=== PATIENT | male | born 1940 | race Two or more races ===

== ENCOUNTER → 2025-03-20 | Outpatient (CLI) | payer MEDICARE, SELFPAY ==
[2025-03-20 12:33] LABS: Basophils # (Auto) 0.0 Thou/mm3 (0.0-0.2); Basophils % (Auto) 0 % (0-2.5); Eosinophils # (Auto) 0.2 Thou/mm3 (0.0-0.5); Eosinophils % (Auto) 3 % (0-10); Hematocrit 45.2 % (41.0-53.0); Hemoglobin 15.8 g/dL (13.5-16.0); Immature Granulocytes Auto 0.03 Thou/mm3 (0.00-0.00); Lymphocytes # (Auto) 0.8 Thou/mm3 (1.0-4.8); Lymphocytes % (Auto) 11 % (10-50); Mean Corpuscular HGB Conc 35.0 g/dl (31.0-37.0); Mean Corpuscular Hemoglobin 31.6 pg (25.0-35.0); Mean Corpuscular Volume 90 fL (80-100); Monocytes # (Auto) 0.6 Thou/mm3 (0.0-0.8); Monocytes % (Auto) 8 % (0-12); Neutrophils # (Auto) 6.0 Thou/mm3 (1.8-7.7); Neutrophils % (Auto) 77 % (37-80); Nucleated Red Blood Cell # 0.00 Thou/mm3 (0.00-0.00); Nucleated Red Blood Cell % 0 /100 WBC (0); Platelet Count 182 Thou/mm3 (140-440); RDW Standard Deviation 42.3 fL (35.1-43.9); Red Blood Count 5.00 Miln/mm3 (4.50-5.90); White Blood Count 7.7 Thou/mm3 (3.8-10.6)
[2025-03-20 14:11] LABS: Prostate Specific Antigen 1.44 ng/mL (0-4.00)
[2025-03-20 14:39] LABS: Alanine Aminotransferase 20 U/L (10-49); Albumin, Serum 5.0 gm/dL (3.4-4.8); Alkaline Phosphatase 88 U/L (46-116); Anion Gap 13 (7-16); Aspartate Amino Transferase 17 U/L (0-34); BUN/Creatinine Ratio 10 Ratio (12-20); Bilirubin,Direct 0.2 mg/dL (0.0-0.3); Bilirubin,Total 0.5 mg/dL (0.3-1.2); Blood Urea Nitrogen 14 mg/dL (9-23); Calcium 10.2 mg/dL (8.3-10.6); Carbon Dioxide 23.2 mMol/L (20.0-31.0); Cardiac Risk Estimate 3.0 RATIO (4.0-6.7); Chloride 104 mMol/L (98-107); Cholesterol 118 mg/dL (132-200); Creatinine (Component) 1.4 mg/dL (0.6-1.3); Glucose 348 mg/dL (74-106); HDL Cholesterol 40 mg/dL (40-60); LDL Cholesterol,Calculated 55 mg/dL (0-130); Osmolality,Calculated 293 (275-295); Potassium 4.7 mMol/L (3.4-5.1); Sodium 140 mMol/L (136-145); Total Protein 7.2 gm/dL (5.7-8.2); Triglycerides 116 mg/dL (30-150); eGFR 50 See Note
== END | disposition home or self-care (01) ==
PROVIDERS: PCP Family Medicine; Referring Provider Family Medicine; Visit Provider Family Medicine
DX: I10 Essential (primary) hypertension (principal); K21.9 Gastro-esophageal reflux disease without esophagitis; E78.5 Hyperlipidemia, unspecified; N40.0 Benign prostatic hyperplasia without lower urinary tract symptoms
CPT/HCPCS: 36415; 80048; 80061; 80076; 84153; 85025

== ENCOUNTER 2025-03-21 19:44 | Emergency (ER) | payer MEDICARE, SELFPAY ==
--- NOTE | 2025-03-21 19:51 | EKG_ITS ---
[facility] Test Date: 2025-03-21 Pat Name: BERNICE IGNACIO Department: Room: - Gender: Male Purchasing Director: : 1940 Requested By: ED Temporary Provider Order Number: [id number] Reading MD: ED Temporary Provider Measurements Intervals [place] Rate: 75 P: 65 ME: 187 QRS: -6 QRSD: 122 T: 28 QT: 352 QTc: 394 Interpretive Statements SINUS RHYTHM INFERIOR MYOCARDIAL INFARCTION , PROBABLY OLD [40+ ms Q WAVE AND/OR ST/T ABNORMALITY IN II/aVF] No previous ECG available for comparison /[id number]/S0/[id number]
[2025-03-21 20:19] VITALS: BP 129/75; PULSE 79; RESP 20; TEMP 37.1; O2SAT 94
--- NOTE | 2025-03-21 20:24 | PD.EDRME ---
Rapid Medical Screening Exam RME Arrival date/time: 03/21/25 19:44 This is a case of 84-year-old male with history of diabetes came in in the emergency room with his son due to high blood sugar at home and with general weakness and lethargy thus decided to bring patient here in the emergency room Chief Complaint: General Adult/Misc Complain Time Seen by Provider: 03/21/25 20:22 Vital signs: Vital Signs Temperature 98.8 F 03/21/25 20:19 Pulse Rate 79 03/21/25 20:19 Respiratory Rate 20 03/21/25 20:19 Blood Pressure 129/75 03/21/25 20:19 Pulse Oximetry (%) 94 L 03/21/25 20:19 Oxygen Delivery Method Room Air 03/21/25 20:19 Exam: Patient is awake alert oriented not in distress nontoxic looking lungs sound is clear breath sounds abdomen soft heart normal rate regular rhythm no murmur Clinical Impression: General weakness hyperglycemia
[2025-03-21] MEDS: SODIUM CHLORIDE 0.9% 1000 ML 1,000 ML 999 ML IV (20:50)
--- NOTE | 2025-03-21 20:58 | PC.NURSE ---
MD GUZMAN MADE AWARE OF PT BS OF 434. OK WITH RUNNING FLUIDS FOR 3O MIN AND WAITING TO GIVE PRESCRIBED INSULIN. WILL RECHECK BS IN 30 MIN. NO NEW ORDERS AT THIS TIME
--- NOTE | 2025-03-21 21:03 | PD.EDWEAK ---
ED Weakness RME/HPI General Chief complaint: General Adult/Misc Complain Stated complaint: NOT FEELING WELL, HIGH BS Time Seen by Provider: 03/21/25 20:22 Arrival date/time: 03/21/25 19:44 RME / HPI RME / HPI Narrative: 03/21/25 19:44 This is a case of 84-year-old male with history of diabetes came in in the emergency room with his son due to high blood sugar at home and with general weakness and lethargy thus decided to bring patient here in the emergency room Dr. Artis?s Main ED Evaluation: 84 y/o male with Hx of Type II DM and HTN presents to ED c/o generalized weakness, lethargy, and elevated blood sugar levels x 1 day. Son reports increased thirst, urinary frequency, urgency, and incontinence. Denies fever, chills, and cold sweats. Son also states that patient has managed to increase his soda intake. Patient has been living with his daughter for the last 5 months, but son has now established patient with a PCP on Sunday. Exam: Patient is awake alert oriented not in distress nontoxic looking lungs sound is clear breath sounds abdomen soft heart normal rate regular rhythm no murmur Impression: General weakness hyperglycemia Related Data Previous Rx's ?Medication ?Instructions ?Recorded acyclovir 800 mg tablet 800 mg PO 5 TIMES DAILY #35 tabs 07/24/17 ibuprofen 600 mg tablet 600 mg PO Q8H PRN fever or pain 07/24/17 #20 tabs lidocaine HCl 2 % topical cream 2 % .Route Q8HR PRN pain #50 mL 07/24/17 tramadol 50 mg tablet 50 mg PO Q6H PRN pain #14 tabs 07/24/17 ibuprofen 600 mg tablet 600 mg PO Q6HR #30 tabs 08/01/17 Allergies Allergy/AdvReac Type Severity Reaction Status Date / Time No Known Allergies Allergy Verified 03/21/25 19:46 Review of Systems Review of Systems Systems Reviewed: All systems reviewed, normal except as documented Past Medical History Past Medical History CARDIAC: Positive Hypercholesterolemia and Hypertension ENDOCRINE: Positive Diabetes Mellitus Type 2 ED Exam Narrative Physical exam: GENERAL APPEARANCE: alert and oriented x 4, well-developed, well-nourished, no acute distress VITALS: All vitals were reviewed and the pulse ox is 94% on room air, which is low according to my interpretation. HEENT: Normocephalic, atraumatic; pupils equal, round, reactive to light; EOMI; mucous membranes pink, moist; oropharynx clear NECK: Supple LUNGS: CTABL; no wheezes, no rales, no rhonchi HEART: Regular rate, regular rhythm; normal S1, S2; no murmurs ABDOMEN: non distended; normal BS; soft, no tenderness, no guarding, no rebound; no masses, no organomegaly, no hernia BACK: no CVA tenderness EXTREMITIES: atraumatic; no edema NEUROLOGIC: awake; alert and oriented x4; cranial nerves II-XII grossly intact; no focal sensory or motor deficits PSYCHIATRIC: appropriate mood and affect SKIN: warm, dry, normal color; no rashes Course Quality Measures none Orders Category Date Time Status EKG (ED ONLY) *Do not use* NOW Care 03/21/25 19:51 Completed Fingerstick [Bedside Blood Glucose] NOW Care 03/21/25 20:05 Active EKG (ED Only) Stat Exams 03/21/25 19:51 Draft A1C [Glycohemoglobin w (eAG)] Stat Lab 03/21/25 20:53 Completed Beta Hydroxybutyrate Stat Lab 03/21/25 20:53 Completed CBC Stat Lab 03/21/25 20:53 Completed Comprehensive Metabolic Panel Stat Lab 03/21/25 20:53 Completed Troponin I Stat Lab 03/21/25 20:53 Completed Urinalysis Stat Lab 03/21/25 21:00 Completed Venous Blood Gas Stat Lab 03/21/25 20:53 Completed Insulin Regular Med 03/21/25 20:23 Discontinued 10 unit IV X1 ONE Insulin Regular Med 03/21/25 21:36 Discontinued 5 unit IV X1 ONE Sodium Chloride 0.9% 1000 ml [Ns] 1,000 ml Med 03/21/25 20:23 Discontinued IV 999 mls/hr Vital Signs Vital signs: Vital Signs Temperature 98.8 F 03/21/25 20:19 Pulse Rate 79 03/21/25 20:19 Respiratory Rate 20 03/21/25 20:19 Blood Pressure 129/75 03/21/25 20:19 Pulse Oximetry (%) 94 L 03/21/25 20:19 Oxygen Delivery Method Room Air 03/21/25 20:19 Weakness MDM Narrative MDM Narrative:: Patient is a 84-year-old male who has a history of prediabetes who was brought in by son with complaints of excessive thirst and urination as well as generally appearing somewhat fatigued. Here in the emergency department the patient's vital signs were stable and normal throughout. His exam is very much reassuring. Patient's workup revealed a normal anion gap and minimally elevated serum ketones. No evidence of DKA or hyperosmolar state. Symptoms consistent with simple hyperglycemia and patient was treated accordingly in ED. patient to follow-up in the [facility] clinic for definitive ongoing treatment for his diabetes. No signs of DKA or hyperosmolar state Scribe Attestation: I, Kimberley Valera, am scribing for and in the presence of Dr. Artis. Provider Notation: Although this document has been carefully reviewed, there may still be some phonetic and other typographical errors. These errors are purely grammatical due to imperfections in the software program and should not be construed in any way to compromise the substance of the patient's medical care during this visit. Patient data External records reviewed:: [facility] previous records (No recent ED records available for review) Clinical information provided by:: family (Son) Social determinants that could affect healthcare access:: none Patient has the following chronic illnesses:: Hypercholesterolemia, Hypertension, Diabetes Mellitus Type 2 How is presenting disease/condition affected by chronic disease/condition?: exacerbated by Evaluation data The following diagnostics were reviewed and interpreted by me:: lab results and EKG tracing(s) (EKG at 20:19 shows normal sinus rhythm at 75, normal axis, no ectopy, no signs of acute ischemia, Q waves in leads III and aVF, per my interpretation.) Lab and/or radiology exams considered but not ordered:: None Interpretation Summary: See MDM above Medications / Prescriptions Medications or Prescriptions considered but not ordered:: None Medication administrations:: Medication Administration History Discontinued Medications Sodium Chloride (Ns) 1,000 mls @ 999 mls/hr IV .Q1H1M ONE Stop: 03/21/25 21:23 Last Infusion: 03/21/25 21:35 Dose: Infused Documented By: Admin: 03/21/25 20:50 Dose: 999 mls/hr Documented By: HANSA Insulin Human Regular (Insulin Hum Regular 1 Unit/0.01 Ml (Per Unit)) 10 unit IV X1 ONE Stop: 03/21/25 20:24 Last Admin: 03/21/25 21:37 Dose: Not Given Documented By: HANSA Non-Admin Reason: Change of Condition Insulin Human Regular (Insulin Hum Regular 1 Unit/0.01 Ml (Per Unit)) 5 unit IV X1 ONE Stop: 03/21/25 21:37 Last Admin: 03/21/25 21:39 Dose: 5 unit Documented By: HANSA Co-signed By: ELIGIO See above if any Consultations Consultation(s) initiated? (list below): No Diagnosis Weakness Differential Diagnosis: acute myocardial infarction, rhabdomyolysis, dehydration and other (Hyperglycemia, DKA) Most likely diagnosis given after review of the tests above:: See clinical impression below Admission Indicated Admission indicated?: not indicated Explain why admission is indicated or not indicated:: Patient has no emergent abnormalities in their studies and can be managed on an outpatient basis Admission Request Was there a request for admission?: No Disposition Plan Disposition Plan: Discharge Discharge Attestation Discharge Attestation: The patient and all family members were given an opportunity to ask questions and understood the discharge instructions. Discharge instructions specifically effects, indications for sooner follow up or return to the emergency department, and the expected course of current diagnosis. Patient condition: Stable Discharge Plan Plan Patient Disposition: HOME (Self Care) Discharge Disposition comment: Stable for discharge home Patient condition on transfer: Stable Prescriptions/Referrals Prescriptions/Med Rec: No Action ibuprofen 600 mg tablet 600 mg PO Q6HR Qty: 30 0RF acyclovir 800 mg tablet 800 mg PO 5 TIMES DAILY Qty: 35 0RF tramadol 50 mg tablet 50 mg PO Q6H PRN (Reason: pain) Qty: 14 0RF ibuprofen 600 mg tablet 600 mg PO Q8H PRN (Reason: fever or pain) Qty: 20 0RF lidocaine HCl 2 % cream 2 % .Route Q8HR PRN (Reason: pain) Qty: 50 0RF Rx Instructions: PRN Referrals: Family [facility] [Provider Group] - In 1 week Problem List Clinical Impression: Acute hyperglycemia Patient/Caregiver Discharge Instructions Discharge Activity: activity as tolerated Education Materials: ED Hyperglycemia New Susp Diabetes Additional Instructions: I believe Mark has diabetes. You should follow-up with his new primary care doctor or in the family health care clinic within the next several days. They will most likely order diabetes medication for Mark. Ana Flores's blood work showed that he is not having a complication of diabetes. But he is most likely diabetic. If he has any worsening or any further medical problems please return Mark to the emergency department right away and we will help him. Print Language: Lao Stand Alone Forms: Mary Award Info., Patient Portal Info Letter
[2025-03-21 21:09] LABS: Base Excess, Venous -2 (-3-3); Basophils # (Auto) 0.0 Thou/mm3 (0.0-0.2); Basophils % (Auto) 1 % (0-2.5); Eosinophils # (Auto) 0.3 Thou/mm3 (0.0-0.5); Eosinophils % (Auto) 4 % (0-10); Hematocrit 47.0 % (41.0-53.0); Hemoglobin 15.8 g/dL (13.5-16.0); Immature Granulocytes Auto 0.04 Thou/mm3 (0.00-0.00); Lymphocytes # (Auto) 1.2 Thou/mm3 (1.0-4.8); Lymphocytes % (Auto) 14 % (10-50); Mean Corpuscular HGB Conc 33.6 g/dl (31.0-37.0); Mean Corpuscular Hemoglobin 30.6 pg (25.0-35.0); Mean Corpuscular Volume 91 fL (80-100); Monocytes # (Auto) 0.7 Thou/mm3 (0.0-0.8); Monocytes % (Auto) 8 % (0-12); Neutrophils # (Auto) 6.1 Thou/mm3 (1.8-7.7); Neutrophils % (Auto) 73 % (37-80); Nucleated Red Blood Cell # 0.00 Thou/mm3 (0.00-0.00); Nucleated Red Blood Cell % 0 /100 WBC (0); O2 Saturation, Venous 55 % (96-97); PCO2, Venous 47 mmHg (36-56); PO2, Venous 31 mmHg (15-58); Platelet Count 181 Thou/mm3 (140-440); RDW Standard Deviation 43.0 fL (35.1-43.9); Red Blood Count 5.16 Miln/mm3 (4.50-5.90); White Blood Count 8.4 Thou/mm3 (3.8-10.6); pH, Venous 7.33 (7.33-7.66)
[2025-03-21 21:13] LABS: Collection Type, Urine Clean Catch; Squamous Epithelial Cell,Urine 0 /hpf (0-5)
[2025-03-21 21:19] LABS: Beta Hydroxybutyrate 0.8 mmol/L (<0.6)
[2025-03-21 21:21] VITALS: BMI 27.3
[2025-03-21 21:27] LABS: Bilirubin,Urine Negative (Negative); Blood,Urine Negative (Negative); Clarity,Urine Clear (Clear/Hazy); Color,Urine Colorless (Lt Yel-Yel); Glucose, Urine 4+ (Negative); Ketones,Urine 1+ (Negative); Leukocyte Esterase,Urine Negative (Negative); Nitrite,Urine Negative (Negative); PH,Urine 6.0 (5.0-7.0); Protein,Urine Negative (Neg - Trace); RBC,Urine 2 /hpf (0-3); Specific Gravity,Urine 1.032 (1.001-1.035); Urobilinogen,Urine Negative mg/dL (0.0-1.0); WBC,Urine < 1 /hpf (0-5)
[2025-03-21 21:31] LABS: Glucose Estimated Average 280 mg/dL (80-131); Hemoglobin A1C 11.4 % Hgb (4.8-6.0)
[2025-03-21 21:34] VITALS: BP 136/85; PULSE 69; RESP 20; TEMP 36.4; O2SAT 98
[2025-03-21] MEDS: INSULIN HUM REGULAR 1 UNIT/0.01 ML (PER UNIT) 5 UNIT IV (21:39)
[2025-03-21 21:43] LABS: Alanine Aminotransferase 20 U/L (10-49); Albumin, Serum 4.8 gm/dL (3.4-4.8); Albumin/Globulin Ratio 1.8 (1.2-2.2); Alkaline Phosphatase 95 U/L (46-116); Anion Gap 10 (7-16); Aspartate Amino Transferase 16 U/L (0-34); BUN/Creatinine Ratio 11 Ratio (12-20); Bilirubin,Total 0.4 mg/dL (0.3-1.2); Blood Urea Nitrogen 15 mg/dL (9-23); Calcium 10.2 mg/dL (8.3-10.6); Calcium (Corrected) 10.2 mg/dL (8.5-10.1); Carbon Dioxide 22.1 mMol/L (20.0-31.0); Chloride 99 mMol/L (98-107); Creatinine (Component) 1.4 mg/dL (0.6-1.3); Estimated Creatinine Clearance 41.3 mL/min (>60); Globulin 2.7 gm/dL (2.3-3.5); Osmolality,Calculated 282 (275-295); Potassium 4.6 mMol/L (3.4-5.1); Sodium 131 mMol/L (136-145); Total Protein 7.5 gm/dL (5.7-8.2); Troponin I < 0.020 ng/mL (0.0-0.045); eGFR 50 See Note
[2025-03-21 21:46] LABS: Glucose 442 mg/dL (74-106)
[2025-03-21 23:18] VITALS: BP 118/76; PULSE 72; RESP 20; TEMP 36.6; O2SAT 96
[2025-03-21 23:24] VITALS: BP 118/76; PULSE 71; RESP 20; TEMP 37.2; O2SAT 99
== END 2025-03-21 23:24 | disposition home or self-care (01) ==
LOC: SERX 23:45
PROVIDERS: Nurse Practitioner Family; Emergency Provider Emergency Medicine
DX: E11.65 Type 2 diabetes mellitus with hyperglycemia (principal); R94.31 Abnormal electrocardiogram [ECG] [EKG]; I10 Essential (primary) hypertension; E78.00 Pure hypercholesterolemia, unspecified
CPT/HCPCS: 36415; 80053; 81001; 82010; 82803; 83036; 84484; 85025; 93005; 96360; 99283; J1815; J7030

== ENCOUNTER → 2025-03-23 | Outpatient (CLI) | payer MEDICARE, SELFPAY ==
[2025-03-26 06:34] LABS: Fecal Globin Result NOT DETECTED (NOT DETECTED)
== END | disposition home or self-care (01) ==
LOC: SLDO 11:44
PROVIDERS: PCP Family Medicine; Referring Provider Family Medicine; Visit Provider Family Medicine
DX: Z12.11 Encounter for screening for malignant neoplasm of colon (principal); Z12.12 Encounter for screening for malignant neoplasm of rectum
CPT/HCPCS: 82274; G0328